=== PATIENT | female | born 1970 | race Caucasian/White ===

== ENCOUNTER 2017-04-04 17:15 | Emergency (ER) | payer OTHER ==
[2017-04-04 17:16] VITALS: BMI 28.6
[2017-04-04 17:21] VITALS: BP 119/76; PULSE 70; RESP 18; TEMP 97.1; O2SAT 100
--- NOTE | 2017-04-04 17:45 | ED PDOC ---
Lower Extremity Pain/Injury Time Seen by Provider: 04/04/17 17:43 Chief Complaint (Nursing): Lower Extremity Problem/Injury Chief Complaint (Provider): RIGHT INGUINAL PAIN History Per: Patient (46 Y/O FEMALE NOTES ONGOING RIGHT INGUINAL PAIN WORSE WITH WALKING X 4 DAYS. DENIES ANY FALLS/ETC. PATIENT NOTES SWELLING RIGHT FOOT WELL AND CAME TO ED FOR EVALUATION. DENIES ANY FOOT PAIN. HAS APPT WITH HER PRIMARY THIS WEEK.) Past Medical History Reviewed: Historical Data, Nursing Documentation, Vital Signs Vital Signs: Last Vital Signs Temp 97.1 F L 04/04/17 17:18 Pulse 70 04/04/17 17:18 Resp 18 04/04/17 17:18 BP 119/76 04/04/17 17:18 Pulse Ox 100 04/04/17 17:18 - Medical History PMH: Gall Bladder Disease Denies: Chronic Kidney Disease - Surgical History Surgical History: Appendectomy, Cholecystectomy - Family History Family History: States: Unknown Family Hx - Immunization History Hx Tetanus Toxoid Vaccination: No - Home Medications Home Medications: Ambulatory Orders Medication Instructions Recorded Ondansetron ODT [Zofran ODT] 1 odt PO BID PRN #6 odt 11/23/15 Polyethylene Glycol 3350 [Miralax] 17 gm PO DAILY #270 ml 11/23/15 oxyCODONE/Acetaminophen [Percocet 1 tab PO QID PRN #20 tab 11/23/15 5/325 mg Tab] Glycerin [Glycerin Adult 1 sup XX DAILY #10 sup 10/19/16 Suppository] Naproxen [Naprosyn Tab] 375 mg PO Q8 PRN #21 tab 04/04/17 - Allergies Allergies/Adverse Reactions: Allergies Allergy/AdvReac Type Severity Reaction Status Date / Time caffeine Allergy NAUSEA Verified 04/04/17 17:18 Review of Systems ROS Statement: Except As Marked, All Systems Reviewed And Found Negative Physical Exam - Reviewed Nursing Documentation Reviewed: Yes Vital Signs Reviewed: Yes - Physical Exam Appears: Positive for: Well, Non-toxic, No Acute Distress Head Exam: Positive for: ATRAUMATIC, NORMAL INSPECTION, NORMOCEPHALIC Skin: Positive for: Normal Color, Warm, DRY Eye Exam: Positive for: EOMI, Normal appearance, PERRL ENT: Positive for: Normal ENT Inspection Neck: Positive for: Normal, Painless ROM Cardiovascular/Chest: Positive for: Regular Rate, Rhythm Respiratory: Positive for: CNT, Normal Breath Sounds Gastrointestinal/Abdominal: Positive for: Normal Exam, Bowel Sounds, Soft Back: Positive for: Normal Inspection Extremity: Positive for: Normal ROM, Tenderness (TENDERNESS ON RIGHT INGUINAL REGION. MILD PEDAL EDEMA. NONTENDER FOOT. DP/PT 2+) Neurologic/Psych: Positive for: Alert, Oriented - ECG O2 Sat by Pulse Oximetry: 100 - Progress ED Course And Treament: dUPLEX:NEG FOR DVT MOTRIN 600MG Disposition - Clinical Impression Clinical Impression: Leg pain - Patient ED Disposition Is Patient to be Admitted: No - Disposition Disposition: Routine/Home Disposition Time: 19:07 Condition: FAIR Prescriptions: Naproxen [Naprosyn Tab] 375 mg PO Q8 PRN #21 tab PRN Reason: Pain, Moderate (4-7) Instructions: Muscle Strain (ED) Print Language: ICELANDIC
--- NOTE | 2017-04-04 19:21 | US ---
EXAM: US Duplex Right Lower Extremity Veins CLINICAL HISTORY: 46 years old, female; Pain; Leg, lower; Right; Additional info: R/O dvt TECHNIQUE: Real-time ultrasound scan of the veins of the right lower extremity with color Doppler flow, spectral waveform analysis and compression. EXAM DATE/TIME: 04/04/2017 5:42 PM COMPARISON: There are no prior studies for comparison. FINDINGS: Deep veins: Common femoral, superficial femoral, popliteal and posterior tibial veins were evaluated. All veins examined are compressible. There are no intraluminal filling defects. There is expected blood flow on Doppler imaging. There is change in waveform with augmentation. Impression: No deep venous thrombosis in the visualized vascular segments of the right lower extremity
== END 2017-04-04 19:28 | disposition home or self-care (01) ==
LOC: H.ER 17:15
DX: M79.604 Pain in right leg (principal)

== ENCOUNTER 2017-10-24 06:12 | Emergency (ER) | payer OTHER ==
[2017-10-24 06:13] VITALS: BMI 28.6
[2017-10-24 06:31] VITALS: PULSE 85; RESP 16; TEMP 98; O2SAT 98
--- NOTE | 2017-10-24 07:29 | ED PDOC ---
HPI: Fever Fever Onset Was: 10/21/17 (Time seen by provider 10/24/17 at 07:05) Symptoms Associated With Fever: Cough. denies: Vomiting, Diarrhea, Rash Additional Comments: Mary Jane Lagos, a 46 year old female patient presents to the Emergency Department complaining of fever, cough, body ache, fatigue onset 3 days ago. She also had a head ache onset two days ago. Denies difficulty breathing, diarrhea, or nausea. PMD: Provider TBD Past Medical History Reviewed: Historical Data, Nursing Documentation, Vital Signs Vital Signs: Last Vital Signs Temp 98 F 10/24/17 06:28 Pulse 85 10/24/17 06:28 Resp 16 10/24/17 06:28 BP 116/77 10/24/17 06:28 Pulse Ox 98 10/24/17 07:39 - Medical History PMH: Gall Bladder Disease, Rheumatoid Arthritis Denies: Chronic Kidney Disease - Surgical History Surgical History: Appendectomy, Cholecystectomy - Family History Family History: States: Unknown Family Hx - Social History Current smoker - smoking cessation education provided: No Alcohol: None Drugs: Denies - Immunization History Hx Tetanus Toxoid Vaccination: No - Home Medications Home Medications: Ambulatory Orders Medication Instructions Recorded Ondansetron ODT [Zofran ODT] 1 odt PO BID PRN #6 odt 11/23/15 Polyethylene Glycol 3350 [Miralax] 17 gm PO DAILY #270 ml 11/23/15 oxyCODONE/Acetaminophen [Percocet 1 tab PO QID PRN #20 tab 11/23/15 5/325 mg Tab] Glycerin [Glycerin Adult 1 sup XX DAILY #10 sup 10/19/16 Suppository] Naproxen [Naprosyn Tab] 375 mg PO Q8 PRN #21 tab 04/04/17 Ibuprofen [Motrin Tab] 600 mg PO Q6 PRN #15 tab 10/24/17 Oseltamivir [Tamiflu] 75 mg PO BID #10 cap 10/24/17 - Allergies Allergies/Adverse Reactions: Allergies Allergy/AdvReac Type Severity Reaction Status Date / Time caffeine Allergy NAUSEA Verified 10/24/17 06:28 Review of Systems ROS Statement: Except As Marked, All Systems Reviewed And Found Negative Constitutional: Positive for: Fever Respiratory: Positive for: Cough. Negative for: Shortness of Breath, SOB with Exertion Gastrointestinal: Negative for: Nausea, Abdominal Pain, Diarrhea Musculoskeletal: Positive for: Other (body ache) Skin: Negative for: Rash Psych: Positive for: Other (fatigue) Physical Exam - Reviewed Nursing Documentation Reviewed: Yes Vital Signs Reviewed: Yes - Physical Exam Appears: Positive for: Well, Non-toxic, No Acute Distress Head Exam: Positive for: ATRAUMATIC, NORMAL INSPECTION, NORMOCEPHALIC Skin: Positive for: Normal Color, Warm, Dry. Negative for: Rash Eye Exam: Positive for: Normal appearance, EOMI, PERRL ENT: Positive for: Pharyngeal Erythema Neck: Positive for: Normal, Painless ROM. Negative for: Decreased ROM, Pain On Movement Of Neck Cardiovascular/Chest: Positive for: Regular Rate, Rhythm. Negative for: Murmur Respiratory: Positive for: Normal Breath Sounds. Negative for: Decreased Breath Sounds Gastrointestinal/Abdominal: Positive for: Normal Exam, Bowel Sounds, Soft, Tenderness Back: Positive for: Normal Inspection Extremity: Positive for: Normal ROM. Negative for: Tenderness Neurologic/Psych: Positive for: Alert, Oriented (x3) - ECG O2 Sat by Pulse Oximetry: 98 (RA) Pulse Ox Interpretation: Normal - Radiology X-Ray: Interpreted by Me, Viewed By Me X-Ray Interpretation: No Acute Disease, Other (toroidal) Medical Decision Making Medical Decision Making: Time: 7:13 Initial Impression:Flu Initial Plan: --Chest X-ray --Toradol 30mg IM --Reevaluation attorney lawyer #[id number] used for german vitals stable No evidence respiratory failure Given classic symptoms, empiric treatment for flu followup PMD 2-3 days Scribe Attestation: Documented by Becky Sandoval, acting as a scribe for Tone Cano MD Provider Scribe Attestation: All medical record entries made by the Scribe were at my direction and personally dictated by me. I have reviewed the chart and agree that the record accurately reflects my personal performance of the history, physical exam, medical decision making, and the department course for this patient. I have also personally directed, reviewed, and agree with the discharge instructions and disposition. Disposition - Clinical Impression Clinical Impression: Influenza-like symptoms - Patient ED Disposition Is Patient to be Admitted: No Counseled Patient/Family Regarding: Studies Performed, Diagnosis, Need For Followup, Rx Given - Disposition Referrals: Shaq Kinney MD [Family Provider] - Disposition: Routine/Home Disposition Time: 07:45 Condition: STABLE Additional Instructions: Drink plenty of fluids, get plenty of rest, use medications as directed. Prescriptions: Ibuprofen [Motrin Tab] 600 mg PO Q6 PRN #15 tab PRN Reason: Pain, Moderate (4-7) Oseltamivir [Tamiflu] 75 mg PO BID #10 cap Instructions: Influenza (ED) Forms: [facility] (Mozambican), [facility] ED School/Work Excuse Print Language: SENEGALESE
[2017-10-24 08:05] VITALS: BP 118/70
--- NOTE | 2017-10-24 10:54 | RAD ---
HISTORY: cough COMPARISON: Chest radiograph dated 06/05/2013 TECHNIQUE: Chest PA and lateral FINDINGS: LUNGS: No active pulmonary disease. PLEURA: No significant pleural effusion identified. No pneumothorax apparent. CARDIOVASCULAR: Normal. OSSEOUS STRUCTURES: No significant abnormalities. VISUALIZED UPPER ABDOMEN: Normal. OTHER FINDINGS: None. IMPRESSION: No active disease.
== END 2017-10-24 08:06 | disposition home or self-care (01) ==
LOC: H.ER 06:12
DX: J11.1 Influenza due to unidentified influenza virus with other respiratory manifestations (principal)
CPT/HCPCS: 71046; 96372; 99282; J1885

== ENCOUNTER 2018-06-14 23:08 | Emergency (ER) | payer OTHER ==
[2018-06-14 23:09] VITALS: BMI 28.6
[2018-06-14 23:15] VITALS: BP 164/78; PULSE 58; RESP 76; TEMP 98.3; O2SAT 98
--- NOTE | 2018-06-15 00:34 | ED PDOC ---
HPI: Abdomen Time Seen by Provider: 06/14/18 23:42 Chief Complaint (Nursing): Abdominal Pain Chief Complaint (Provider): Abdominal pain History Per: Patient, Health Sciences Manager (LAURI Arana) History/Exam Limitations: no limitations Onset/Duration Of Symptoms: Hrs (x5) Additional Complaint(s): Mary Jane Lagos, a 47 year old female with past medical history of rheumatoid arthritis, presents to the emergency department with epigastric and RUQ pain onset 1900 associated with nausea and 1 episode of vomiting. Patient states she was eating a cookie upon onset of pain. She denies bloody or bilious vomit, abnormal bowel movement, urinary symptoms or fever. Patient is s/p cholecystectomy and appendectomy. Past Medical History Reviewed: Historical Data, Nursing Documentation, Vital Signs Vital Signs: Last Vital Signs Temp 98.3 F 06/14/18 23:13 Pulse 58 L 06/14/18 23:13 Resp 76 H 06/14/18 23:13 BP 164/78 H 06/14/18 23:13 Pulse Ox 98 06/15/18 01:59 - Medical History PMH: Arthritis (rheumatoid), Gall Bladder Disease, Rheumatoid Arthritis Denies: Chronic Kidney Disease - Surgical History Surgical History: Appendectomy, Cholecystectomy - Family History Family History: States: Unknown Family Hx - Home Medications Home Medications: Ambulatory Orders Medication Instructions Recorded Ondansetron ODT [Zofran ODT] 1 odt PO BID PRN #6 odt 11/23/15 Polyethylene Glycol 3350 [Miralax] 17 gm PO DAILY #270 ml 11/23/15 oxyCODONE/Acetaminophen [Percocet 1 tab PO QID PRN #20 tab 11/23/15 5/325 mg Tab] Glycerin [Glycerin Adult 1 sup XX DAILY #10 sup 10/19/16 Suppository] Naproxen [Naprosyn Tab] 375 mg PO Q8 PRN #21 tab 04/04/17 Ibuprofen [Motrin Tab] 600 mg PO Q6 PRN #15 tab 10/24/17 Oseltamivir [Tamiflu] 75 mg PO BID #10 cap 10/24/17 - Allergies Allergies/Adverse Reactions: Allergies Allergy/AdvReac Type Severity Reaction Status Date / Time caffeine Allergy NAUSEA Verified 10/24/17 06:28 Review of Systems ROS Statement: Except As Marked, All Systems Reviewed And Found Negative Constitutional: Negative for: Fever Gastrointestinal: Positive for: Vomiting (1 episode, nonbilious nonbloody), Abdominal Pain (epigastric, RUQ). Negative for: Nausea, Diarrhea, Constipation, Melena, Hematochezia Genitourinary Female: Negative for: Dysuria, Frequency, Incontinence, Hematuria Physical Exam - Reviewed Nursing Documentation Reviewed: Yes Vital Signs Reviewed: Yes - Physical Exam Appears: Positive for: Well, Non-toxic, No Acute Distress Head Exam: Positive for: ATRAUMATIC, NORMAL INSPECTION, NORMOCEPHALIC Skin: Positive for: Normal Color, Warm, DRY Eye Exam: Positive for: EOMI, Normal appearance, PERRL ENT: Positive for: Normal ENT Inspection Neck: Positive for: Normal, Painless ROM Cardiovascular/Chest: Positive for: Regular Rate, Rhythm Respiratory: Positive for: Normal Breath Sounds. Negative for: Respiratory Distress Gastrointestinal/Abdominal: Positive for: Soft, Tenderness (epigastric area). Negative for: Guarding, Rebound Back: Positive for: Normal Inspection Extremity: Positive for: Normal ROM Neurologic/Psych: Positive for: Alert, Oriented - Laboratory Results Result Diagrams: 06/15/18 00:23 06/15/18 00:23 - ECG O2 Sat by Pulse Oximetry: 98 (RA) Pulse Ox Interpretation: Normal Medical Decision Making Medical Decision Making: Time: 23:42 A/P: 47 year old female with rheumatoid arthritis presenting with epigastric pain -differential includes gastritis vs. gastroenteritis vs. pancreatitis vs. peptic ulcer disease --BMP --Lipase stat --Liver profile --CBC --Obstructive series --Pepcid 20 mg IVP --Zofran 4 mg IVP 130AM --Patient has no relief from medications so far --Will get CT to r/o further intra-abdominal pathology such as SBO 5AM --CT showed viral gastorenteritis, patient already aware of hernia --Patient feeling much better, no longer having pain --Advised plenty of fluids, rest, anti-emetic and encouraged followup with Dr. Kinney --Patient with normal vitals, well appearing upon discharge Scribe Attestation: Documented by Melissa Villanueva, acting as a scribe for Neel Palmer MD. Provider Scribe Attestation: All medical record entries made by the Scribe were at my direction and personally dictated by me. I have reviewed the chart and agree that the record accurately reflects my personal performance of the history, physical exam, medical decision making, and the department course for this patient. I have also personally directed, reviewed, and agree with the discharge instructions and disposition. Disposition - Clinical Impression Clinical Impression: Gastroenteritis - Patient ED Disposition Is Patient to be Admitted: No - Disposition Disposition: Routine/Home Disposition Time: 05:00 Condition: STABLE Instructions: Gastroenteritis (ED) Forms: [facility] (Yakut) Print Language: SOUTH SUDANESE - Pt Status Changed To: Hospital Disposition Of: Observation (MEDITECH ERROR, PATIENT DISCHARGED FROM ER) - Admit Certification Admit to Inpatient:: Main - POA Present On Arrival: None
[2018-06-15 00:44] LABS: HEMOGLOBIN 12.4 g/dL (12.0-16.0); MEAN CORPUSCULAR HEMOGLOBIN 29.3 pg (27.0-31.0); MEAN CORPUSCULAR HGB CONC 32.9 g/dL (33.0-37.0); RBC 4.24 Mil/uL (3.80-5.20); RED CELL DISTRIBUTION WIDTH 13.4 % (11.5-14.5)
[2018-06-15 00:53] LABS: ALB/GLOB RATIO 1.3 (1.0-2.1); ALBUMIN 4.1 g/dL (3.5-5.0); ALT/SGPT 45 U/L (9-52); AST/SGOT 51 U/L (14-36); BILIRUBIN,DIRECT 0.1 mg/ml (0.0-0.4); BLOOD UREA NITROGEN 13 mg/dl (7-17); CALCIUM 9.4 mg/dL (8.4-10.2); GFR NON-AFRICAN AMERICAN > 60; LIPASE 81 U/L (23-300)
[2018-06-15] MEDS ORDERED: Iohexol 240 (50 ml) PO ONE (01:27)
[2018-06-15] MEDS ORDERED: Iohexol 300 100 ML IJ ONE (03:53)
[2018-06-15] MEDS ORDERED: Sodium Chloride 0.9% 50 ML IV ONE (03:53)
--- NOTE | 2018-06-15 12:35 | RAD ---
Date of service: 06/15/2018 PROCEDURE: Radiographs of the chest and abdomen (obstructive series) HISTORY: abd pain COMPARISON: No prior. TECHNIQUE: AP radiograph of the chest, with upright and supine radiographs of the abdomen. FINDINGS: CHEST: Lungs: Clear. Cardiovascular: Normal size heart. No pulmonary vascular congestion. Pleura: No pleural fluid. No pneumothorax. Other findings: None. ABDOMEN AND PELVIS: Bowel: There is large amount of stool in the ascending colon. No evidence of mechanical obstruction. Free air: None. Bones: Unremarkable. Other findings: None. IMPRESSION: Moderate stool burden in the ascending colon. Nonobstructive bowel-gas pattern. Clear lungs.
--- NOTE | 2018-06-15 12:36 | CT ---
Date of service: 06/15/2018 PROCEDURE: CT Abdomen and Pelvis with contrast HISTORY: s/p cholecystectomy/appy, epig pain COMPARISON: CT scan of the abdomen pelvis dated 06/04/2015. TECHNIQUE: Contrast dose: 90 mL Omnipaque 300 Radiation dose: Total exam DLP = 411.3 mGy-cm. This CT exam was performed using one or more of the following dose reduction techniques: Automated exposure control, adjustment of the mA and/or kV according to patient size, and/or use of iterative reconstruction technique. FINDINGS: LOWER THORAX: Unremarkable. LIVER: Diffuse hepatic steatosis. No gross lesion or ductal dilatation. GALLBLADDER AND BILE DUCTS: Prior cholecystectomy. PANCREAS: Unremarkable. No gross lesion or ductal dilatation. SPLEEN: Unremarkable. ADRENALS: Unremarkable. No mass. KIDNEYS AND URETERS: Unremarkable. No hydronephrosis. No solid mass. VASCULATURE: Unremarkable. No aortic aneurysm. BOWEL: Questionable mild wall thickening of the distal stomach. No obstruction. No gross mural thickening. APPENDIX: Prior appendectomy. PERITONEUM: Unremarkable. No free fluid. No free air. LYMPH NODES: Unremarkable. No enlarged lymph nodes. BLADDER: Unremarkable. REPRODUCTIVE: Unremarkable. BONES: No acute fracture. OTHER FINDINGS: Previously described left breast mass not visualized on the current examination. IMPRESSION: Questionable mild wall thickening of the distal stomach which may represent gastritis. Previously described left breast mass not visualized on the current examination. Additional stable findings as above.
== END 2018-06-15 05:30 | disposition home or self-care (01) ==
LOC: H.ER 23:08
DX: R10.9 Unspecified abdominal pain (principal); K52.9 Noninfective gastroenteritis and colitis, unspecified
CPT/HCPCS: 74022; 74177; 80048; 80076; 83690; 85027; 96374; 96375; 99284; J1885; J2270; J2405; Q9966; Q9967

== ENCOUNTER 2018-10-08 17:32 | Emergency (ER) | payer OTHER ==
[2018-10-08 17:32] VITALS: BMI 28.6
[2018-10-08 18:20] VITALS: BP 119/80; PULSE 84; RESP 19; TEMP 98.7; O2SAT 99
--- NOTE | 2018-10-08 18:34 | ED PDOC ---
HPI: Influenza Time Seen by Provider: 10/08/18 18:25 Chief Complaint: Cough, Cold, Congestion Chief Complaint (Provider): Cough, Cold, Congestion History Per: Patient Exam Limitations: no limitations Onset/Duration Of Symptoms: Days (2x) Symptoms include: headache, cough, nasal congestion. denies: fever Additional complaint(s):: 47 year old female with no pertinent past medical history presents to the ED for an evaluation of a cough, congestion, with headaches ongoing for 2x days. Patient denies having fevers at home. Patient reports taking advil cold, sinus medications, and [id number] cough syrup with no relief. PMD: Shaq Kinney MD Past Medical History Reviewed: Historical Data, Nursing Documentation, Vital Signs Vital Signs: Last Vital Signs Temp 98.7 F 10/08/18 18:18 Pulse 84 10/08/18 18:18 Resp 19 10/08/18 18:18 BP 119/80 10/08/18 18:18 Pulse Ox 99 10/08/18 18:18 REGGIE Report Viewed: Yes - Medical History PMH: Arthritis (rheumatoid), Gall Bladder Disease, Rheumatoid Arthritis Denies: Chronic Kidney Disease - Surgical History Surgical History: Appendectomy, Cholecystectomy - Family History Family History: States: No Known Family Hx - Social History Current smoker - smoking cessation education provided: No Alcohol: None Drugs: Denies - Immunization History Hx Tetanus Toxoid Vaccination: No - Home Medications Home Medications: Ambulatory Orders Medication Instructions Recorded Ondansetron ODT [Zofran ODT] 1 odt PO BID PRN #6 odt 11/23/15 Polyethylene Glycol 3350 [Miralax] 17 gm PO DAILY #270 ml 11/23/15 oxyCODONE/Acetaminophen [Percocet 1 tab PO QID PRN #20 tab 11/23/15 5/325 mg Tab] Glycerin [Glycerin Adult 1 sup XX DAILY #10 sup 10/19/16 Suppository] Naproxen [Naprosyn Tab] 375 mg PO Q8 PRN #21 tab 04/04/17 Ibuprofen [Motrin Tab] 600 mg PO Q6 PRN #15 tab 10/24/17 Oseltamivir Cap [Tamiflu] 75 mg PO BID #10 cap 10/24/17 Ibuprofen [Motrin] 600 mg PO Q8 PRN #21 tab 10/08/18 Promethazine/Codeine 5 ml PO Q12 PRN #100 ml 10/08/18 [Codeine/Promethazine 10 MG/5 Ml-6.25 MG/5 Ml] Pseudoephedrine [Sudafed Tab] 60 mg PO Q6 PRN #24 tab 10/08/18 - Allergies Allergies/Adverse Reactions: Allergies Allergy/AdvReac Type Severity Reaction Status Date / Time caffeine Allergy NAUSEA Verified 10/08/18 18:21 Review of Systems ROS Statement: Except As Marked, All Systems Reviewed And Found Negative Constitutional: Negative for: Fever ENT: Positive for: Nose Congestion Respiratory: Positive for: Cough Neurological: Positive for: Headache Physical Exam - Reviewed Nursing Documentation Reviewed: Yes Vital Signs Reviewed: Yes - Physical Exam Appears: Positive for: Well, Non-toxic, No Acute Distress Head Exam: Positive for: ATRAUMATIC, NORMOCEPHALIC Skin: Positive for: Normal Color, Warm, Dry ENT: Positive for: Nasal Congestion. Negative for: Pharyngeal Erythema, Tonsillar Exudate, Tonsillar Swelling, Other (facial tenderness illicited) Cardiovascular/Chest: Positive for: Regular Rate, Rhythm Respiratory: Positive for: Normal Breath Sounds Neurologic/Psych: Positive for: Alert, Oriented (3x) Medical Decision Making Medical Decision Makin:25 Initial impression: 47 year old female with a cough, cold, and congestion Initial plan: * tylenol 325 mg tab 975 mg PO * reevaluation Scribe Attestation: Documented byJaclyn Kebede, acting as a scribe for Roxie Johnston PA-C. Provider Scribe Attestation: All medical record entries made by the Scribe were at my direction and personally dictated by me. I have reviewed the chart and agree that the record accurately reflects my personal performance of the history, physical exam, medical decision making, and the department course for this patient. I have also personally directed, reviewed, and agree with the discharge instructions and disposition. - ECG O2 Sat by Pulse Oximetry: 99 (RA) Pulse Ox Interpretation: Normal Disposition - Clinical Impression Clinical Impression: URI with cough and congestion - Patient ED Disposition Is Patient to be Admitted: No - Disposition Referrals: [facility] [Outside] Disposition: Routine/Home Disposition Time: 18:42 Condition: FAIR Prescriptions: Ibuprofen [Motrin] 600 mg PO Q8 PRN #21 tab PRN Reason: Pain, Moderate (4-7) Promethazine/Codeine [Codeine/Promethazine 10 MG/5 Ml-6.25 MG/5 Ml] 5 ml PO Q12 PRN #100 ml PRN Reason: Cough Pseudoephedrine [Sudafed Tab] 60 mg PO Q6 PRN #24 tab PRN Reason: Nasal Congestion Instructions: Viral Upper Respiratory Infection, Adult (DC) Forms: [facility] ED School/Work Excuse Print Language: VIETNAMESE
== END 2018-10-08 19:25 | disposition home or self-care (01) ==
LOC: H.ER 17:32
DX: J06.9 Acute upper respiratory infection, unspecified (principal)